=== PATIENT | female | born 2000 | race Two or more races ===

== ENCOUNTER 2023-01-07 22:15 | Emergency (ER) | payer OTHER ==
[~2023-01-07] VITALS: Ht 157.5 cm; Wt 52.2 kg
== END 2023-01-08 02:22 ==
LOC: ER 22:15
DX: O20.9 Hemorrhage in early pregnancy, unspecified (principal); Z3A.00 Weeks of gestation of pregnancy not specified

== ENCOUNTER 2023-01-29 21:49 | Inpatient (IN) | payer OTHER ==
[~2023-01-29] VITALS: Ht 157.5 cm; Wt 2.3 kg
--- NOTE | 2023-01-29 22:05 | NUR ---
PACIENTE ALERTA Y ORIENTADA X 3. REFIERE TENER REFERIDO DE ADMISION DE DR TIERA MARCANO POR VOMITOS. PACIENTE REFIERE 9 SEMANAS DE EMBARAZO Y LLEVAR UN MES CON LOS VOMITOS QUE EL WANDA DE HOY FUERON 4.
[2023-01-29] MEDS ORDERED: FOLIC ACID20 MG (22:07)
[2023-02-02] MEDS ORDERED: PHENERGAN25 MG PO (09:01)
== END 2023-02-02 11:43 | disposition home or self-care (01) | DRG 833 ==
LOC: ER 21:49 → OB/GYN 22:50
PROVIDERS: ADMIT Obstetrics & Gynecology; ATTEND Obstetrics & Gynecology
PROC: 4A1HXCZ Monitoring of Products of Conception, Cardiac Rate, External Approach (ICD-10-PCS; principal; 2023-01-29)
PROC: BY49ZZZ Ultrasonography of First Trimester, Single Fetus (ICD-10-PCS; 2023-01-30)
DX: O21.1 Hyperemesis gravidarum with metabolic disturbance (principal); Z20.822 Contact with and (suspected) exposure to COVID-19; Z3A.09 9 weeks gestation of pregnancy

== ENCOUNTER 2023-05-10 13:06 | Outpatient (CLI) | payer OTHER ==
[~2023-05-10 13:06] MED LIST: FOLIC ACID20 MG; PHENERGAN25 MG PO
== END 2023-05-10 16:33 | disposition home or self-care (01) ==
LOC: PRENATAL 13:06
PROVIDERS: ATTEND Obstetrics & Gynecology Maternal & Fetal Medicine
DX: O35.3XX0 Maternal care for (suspected) damage to fetus from viral disease in mother, not applicable or unspecified (principal); O44.00 Complete placenta previa NOS or without hemorrhage, unspecified trimester; Z3A.22 22 weeks gestation of pregnancy

== ENCOUNTER 2023-07-18 16:29 | Outpatient (CLI) | payer OTHER | END 2023-07-18 16:31 | disposition home or self-care (01) | LOC: PRENATAL 16:29 | PROVIDERS: ATTEND Obstetrics & Gynecology Maternal & Fetal Medicine | DX: O26.849 Uterine size-date discrepancy, unspecified trimester (principal); O36.8199 Decreased fetal movements, unspecified trimester, other fetus; Z3A.32 32 weeks gestation of pregnancy ==

== ENCOUNTER → 2023-08-08 09:37 | Outpatient (CLI) | payer OTHER | END | disposition home or self-care (01) | LOC: PRENATAL 09:37 | PROVIDERS: ATTEND Obstetrics & Gynecology Maternal & Fetal Medicine | DX: O26.849 Uterine size-date discrepancy, unspecified trimester (principal); O36.8199 Decreased fetal movements, unspecified trimester, other fetus; Z3A.36 36 weeks gestation of pregnancy ==

== ENCOUNTER 2023-08-15 18:54 | Inpatient (IN) | payer OTHER ==
[~2023-08-15] VITALS: Ht 157.5 cm; Wt 61.7 kg
[2023-08-15 19:46] LABS: URINE APPEARANCE Clear; URINE BILIRRUBIN Negative (NEGATIVE); URINE BLOOD Moderate; URINE COLOR Yellow; URINE GLUCOSE Negative (NEGATIVE); URINE LEUKOCYTE Negative; URINE NITRATE Negative; URINE PROTEIN Negative (NEGATIVE); URINE UROBILINOGEN 0.2 E.U./dl
[2023-08-15 19:47] LABS: HEMATOCRIT 35.2 % (36.0-45.00); MEAN CELL VOLUME 87.1 fL (80.00-100.00); MEAN CORPUSCULAR HEMOGLOBIN 29.6 pg (27.00-32.0); PLATELET COUNT 275 K/uL (150-450); RED BLOOD COUNT 4.04 M/uL (4.00-6.00); RED CELL DISTRIBUTION WIDTH 13.4 % (11.5-14.5); URINE BACTERIA 50.3 uL (0.0-1933); URINE EPITHELIAL CELLS 3.3 uL (0.0-38.8); URINE RBC 80.8 uL (0.0-20.8); URINE WBC 3.5 uL (0.0-23.2)
[2023-08-15 20:14] LABS: INR < 0.93; PARTIAL THROMBOPLASTIN TIME 27.3 SECONDS (22.0-34.0); PROTHROMBIN TIME 9.4 SECONDS (9.0-11.5)
[2023-08-15 20:19] LABS: ALBUMIN 2.9 gm/dL (3.4-5.0); BILIRUBIN TOTAL 0.34 mg/dL (0.3-1.2); CALCIUM 9.4 mg/dL (8.5-10.1); CREATININE SERUM 0.63 mg/dL (0.55-1.02); GFR 119.29; POTASSIUM 4.38 mEq/L (3.5-5.1); TOTAL PROTEIN 6.9 gm/dL (6.4-8.2)
[2023-08-16 17:58] LABS: ABG PH 7.331 (7.35-7.45); ABG PO2 27.5 mmHg (80-100); BASE EXCESS -5.3 mmol/l; BICARBONATE 20.1 mmol/l (23-25); SaO2 44.7 %; Tco2 21.3 mmol/l
[2023-08-16 17:59] LABS: o2 21 %
== END 2023-08-18 17:07 | disposition home or self-care (01) | DRG 807 ==
LOC: LDR 18:54 → OB/GYN 08-16 14:27
PROVIDERS: ADMIT Obstetrics & Gynecology; ATTEND Obstetrics & Gynecology
PROC: 4A1HXCZ Monitoring of Products of Conception, Cardiac Rate, External Approach (ICD-10-PCS; 2023-08-15)
PROC: 3E0P7VZ Introduction of Hormone into Female Reproductive, Via Natural or Artificial Opening (ICD-10-PCS; 2023-08-15)
PROC: 10E0XZZ Delivery of Products of Conception, External Approach (ICD-10-PCS; principal; 2023-08-16)
PROC: 0W8NXZZ Division of Female Perineum, External Approach (ICD-10-PCS; 2023-08-16)
PROC: 3E033VJ Introduction of Other Hormone into Peripheral Vein, Percutaneous Approach (ICD-10-PCS; 2023-08-16)
DX: O80 Encounter for full-term uncomplicated delivery (principal); Z37.0 Single live birth; Z3A.37 37 weeks gestation of pregnancy; Z20.822 Contact with and (suspected) exposure to COVID-19

== ENCOUNTER 2024-06-06 13:27 | Emergency (ER) | payer OTHER ==
[~2024-06-06] VITALS: Ht 157.5 cm; Wt 45.4 kg
[2024-06-06] MEDS ORDERED: KETOROLAC TROMETHAMINE 60 MG VIAL IM STA (14:42)
== END 2024-06-06 15:43 | disposition home or self-care (01) ==
LOC: ER 13:29
DX: H53.143 Visual discomfort, bilateral (principal)

== ENCOUNTER 2024-12-01 03:19 | Emergency (ER) | payer OTHER ==
[~2024-12-01] VITALS: Ht 157.5 cm; Wt 51.3 kg
[2024-12-01] MEDS ORDERED: HYOSCYAMINE SULFATE 0.125 MG TAB.SUBL SL STA (03:53)
[2024-12-01] MEDS ORDERED: PROMETHAZINE HCL 50 MG/ML AMPUL IM STA (03:53)
[2024-12-01] MEDS ORDERED: FAMOTIDINE/PF 20 MG/2 ML VIAL IV PUSH STA (03:54)
[2024-12-01] MEDS ORDERED: 0.9 % SODIUM CHLORIDE 1,000 ML IV ONE (04:00)
[2024-12-01] MEDS ORDERED: PROMETHAZINE HCL 50 MG/ML AMPUL IM ONE (04:00)
[2024-12-01] MEDS ORDERED: FAMOTIDINE/PF 20 MG/2 ML VIAL ONE (04:01)
[2024-12-01] MEDS ORDERED: HYOSCYAMINE SULFATE 0.125 MG TAB.SUBL ONE (04:01)
[2024-12-01 05:02] LABS: URINE APPEARANCE Cloudy; URINE BILIRRUBIN Negative (NEGATIVE); URINE BLOOD Large; URINE COLOR Dark Yellow; URINE GLUCOSE Negative (NEGATIVE); URINE LEUKOCYTE Trace; URINE NITRATE Negative
[2024-12-01 05:03] LABS: HEMATOCRIT 44.6 % (36.0-45.00); HEMOGLOBIN 15.4 g/dL (12.0-15.00); MEAN CELL VOLUME 86.6 fL (80.00-100.00); MEAN CORPUSCULAR HEMOGLOBIN 29.8 pg (27.00-32.0); MEAN CORPUSCULAR HGB CONC 34.4 g/dl (32.0-36.0); PLATELET COUNT 235 K/uL (150-450); RED BLOOD COUNT 5.14 M/uL (4.00-6.00); RED CELL DISTRIBUTION WIDTH 13.8 % (11.5-14.5)
[2024-12-01 05:06] LABS: URINE BACTERIA 1979.1 uL (0.0-1933); URINE EPITHELIAL CELLS 90.5 uL (0.0-38.8); URINE RBC 517.9 uL (0.0-20.8); URINE WBC 43.5 uL (0.0-23.2)
[2024-12-01 05:14] LABS: URINE KETONE >=160 (NEGATIVE)
[2024-12-01 05:15] LABS: URINE CAST 1.17 uL (0.0-1.40); URINE PROTEIN 300 (NEGATIVE)
[2024-12-01 05:18] LABS: CALCIUM 10.1 mg/dL (8.5-10.1); CREATININE SERUM 0.74 mg/dL (0.55-1.02); GFR 98.14; POTASSIUM 3.56 mEq/L (3.5-5.1)
[2024-12-01] MEDS ORDERED: LACTOBACILLUS ACIDOPHILUS 1 CAP CAP PO STA (06:34)
[2024-12-01] MEDS ORDERED: CIPROFLOXACIN IN 5 % DEXTROSE 400 MG/200 ML PIGGYBAG IV STA (07:13)
[2024-12-01] MEDS ORDERED: CIPROFLOXACIN IN 5 % DEXTROSE 400 MG/200 ML PIGGYBAG IV ONE (07:16)
[2024-12-01] MEDS ORDERED: LACTOBACILLUS ACIDOPHILUS 1 CAP CAP PO ONE (07:16)
[2024-12-01 07:26] VITALS: BP 90/56; O2SAT 97
== END 2024-12-01 12:12 | disposition home or self-care (01) ==
LOC: ER 03:19
PROVIDERS: General Practice
DX: R11.10 Vomiting, unspecified (principal); R19.7 Diarrhea, unspecified

== ENCOUNTER 2025-07-30 12:53 | Emergency (ER) | payer OTHER ==
[~2025-07-30] VITALS: Ht 157.5 cm; Wt 51.3 kg
[2025-07-30] MEDS ORDERED: ORPHENADRINE CITRATE 30 MG/ML AMPUL IM ONE (14:45)
[2025-07-30] MEDS ORDERED: KETOROLAC TROMETHAMINE 60 MG VIAL IM ONE ×2 (14:45→15:23)
[2025-07-30] MEDS ORDERED: ORPHENADRINE CITRATE 30 MG/ML AMPUL ONE (15:23)
[2025-07-30] MEDS ORDERED: NORFLEX100MG PO (16:16)
== END 2025-07-30 16:38 | disposition home or self-care (01) ==
LOC: EMR PED 12:54 → ER 12:54
DX: S19.89XA Other specified injuries of other specified part of neck, initial encounter (principal); V49.88XA Car occupant (driver) (passenger) injured in other specified transport accidents, initial encounter; Y93.89 Activity, other specified; Y92.89 Other specified places as the place of occurrence of the external cause; Y99.8 Other external cause status; M54.2 Cervicalgia